=== PATIENT | female | born 1965 | race Caucasian/White ===

== ENCOUNTER 2022-12-30 05:24 | Inpatient (IN) | payer OTHER ==
[2022-12-30] MEDS ORDERED: Celecoxib 200 MG Cap PO ONE (05:45)
[2022-12-30] MEDS ORDERED: Scopolamine 1.5 MG Transdermal Patch TOP SCH (05:45)
[2022-12-30 06:07] LABS: HEMATOCRIT 41.7 % (34.3-46.0); HEMOGLOBIN 14.3 g/dL (11.2-15.5); MEAN CORPUSCULAR HEMOGLOBIN 29.4 pg (31.6-35.5); MEAN CORPUSCULAR HGB CONC 34.3 g/dL (31.6-35.5); MEAN CORPUSCULAR VOLUME 85.8 fL (81.4-99.0); RED BLOOD CELL COUNT 4.86 M/uL (3.77-5.24); WHITE BLOOD CELL COUNT,WBC 9.6 K/uL (3.2-11.0)
[2022-12-30 06:21] LABS: HEMOGLOBIN A1C 6.1 % (4.5-6.2)
[2022-12-30 06:34] LABS: ALANINE AMINOTRANSFERASE,ALT 24 U/L (12-78); ALBUMIN 3.5 g/dL (3.4-5.0); ALKALINE PHOSPHATASE 129 U/L (46-116); ANION GAP 10.7 mmol/L (5.0-14.0); ASPARTATE AMNIOTRANSFERASE,AST 10 U/L (15-37); BILIRUBIN TOTAL 0.4 mg/dL (0.2-1.0); BLOOD UREA NITROGEN,BUN 18 mg/dL (7-18); CALCIUM 8.6 mg/dL (8.5-10.1); CARBON DIOXIDE,CO2 26 mmol/L (21-32); CHLORIDE,CL 105 mmol/L (100-108); CREATININE 0.7 mg/dL (0.6-1.0); EST CRCL DRUG DOSING (CG) 78.41 mL/min; ESTIMATED GFR 102 mL/min (>60); GLUCOSE RANDOM 116 mg/dL (74-106); MAGNESIUM 1.9 mg/dL (1.8-2.4); PHOSPHORUS 3.9 mg/dL (2.5-4.9); POTASSIUM,K 3.7 mmol/L (3.6-5.2); PRO B-TYPE NATRIUR PEPT,BNPPRO 129 pg/mL (5-125); PROTEIN TOTAL,TP 6.9 g/dL (6.4-8.2); SODIUM,NA 142 mmol/L (140-148)
[2022-12-30] MEDS ORDERED: Dextrose 5%-Lactated Ringers 1,000 ML IV SCH (06:45)
[2022-12-30] MEDS ORDERED: cefOXitin 2 GM Vial ONE (06:46)
[2022-12-30] MEDS ORDERED: fentaNYL 250 MCG/5 ML SDV ONE ×2 (07:11→08:01)
[2022-12-30] MEDS ORDERED: Neostigmine Methylsulfate 1 MG/ML 5 ML Syringe ONE (07:12)
[2022-12-30] MEDS ORDERED: Rocuronium 50 MG/5 ML Vial ONE (07:12)
[2022-12-30] MEDS ORDERED: Glycopyrrolate 0.2 MG/ML 5 ML MDV ONE (07:12)
[2022-12-30] MEDS ORDERED: Propofol 200 MG/20 ML SDV ONE (07:12)
[2022-12-30] MEDS ORDERED: Dexamethasone 4 MG/ML SDV ONE (07:12)
[2022-12-30] MEDS ORDERED: Succinylcholine 200 MG/10 ML MDV ONE (07:12)
[2022-12-30] MEDS ORDERED: Ondansetron 4 MG/2 ML SDV ONE (07:12)
[2022-12-30] MEDS ORDERED: cefOXitin 2 GM in Sodium Chloride 0.9% 50 ML IV ONE (07:30)
[2022-12-30] MEDS ORDERED: Ketamine 500 MG/5 ML MDV IV SCH (08:00)
[2022-12-30] MEDS ORDERED: Ketamine 16 MG in Sodium Chloride 0.9% 19.84 ML IV SCH (08:00)
[2022-12-30] MEDS ORDERED: Labetalol 20 MG/4 ML Syringe ONE (08:17)
[2022-12-30] MEDS ORDERED: hydrOXYzine HCl 50 MG/ML SDV IM ONE (09:54)
[2022-12-30] MEDS: Ondansetron 4 MG/2 ML SDV IVPUSH PRN ×2 (10:31→14:29)
[2022-12-30] MEDS ORDERED: Acetaminophen 500 MG Tab PO PRN (11:00)
[2022-12-30] MEDS ORDERED: HYDROmorphone 0.5 MG/0.5 ML Syringe IVPUSH PRN (11:00)
[2022-12-30] MEDS ORDERED: Labetalol 20 MG/4 ML Syringe IVPUSH PRN (11:00)
[2022-12-30] MEDS ORDERED: hydrOXYzine HCl 50 MG/ML SDV IM PRN (11:00)
[2022-12-30] MEDS ORDERED: HYDROmorphone 1 MG/ML Syringe IV PRN (11:00)
[2022-12-30] MEDS ORDERED: diphenhydrAMINE 50 MG/ML SDV IVPUSH PRN (11:00)
[2022-12-30] MEDS ORDERED: Metoclopramide 10 MG/2 ML SDV IVPUSH PRN (11:00)
[2022-12-30] MEDS ORDERED: Pantoprazole 40 MG Vial IVPUSH SCH (14:00)
[2022-12-30] MEDS: cefOXitin 2 GM in Sodium Chloride 0.9% 50 ML IV SCH ×2 (14:17→19:32)
[2022-12-30] MEDS: MVI, Adult with Vitamin K 10 ML, Thiamine 200 MG, Zinc/Copper/Manganese/Selenium 1 ML i... IV SCH ×4 (15:37)
[2022-12-30] MEDS: Heparin Sodium 5,000 Units/ML Vial SUBCUT SCH (15:39)
[2022-12-30] MEDS: Acetaminophen 500 MG Tab PO SCH ×2 (15:39→23:14)
[2022-12-30] MEDS: Cyclobenzaprine 10 MG Tab PO PRN (15:41)
[2022-12-30] MEDS: traMADol 50 MG Tab PO PRN (19:36)
[2022-12-30] MEDS: Docusate Sodium Liquid 50 MG/5 ML ML 473 ML Bottle PO SCH (21:02)
[2022-12-30] MEDS: Pregabalin 75 MG Cap PO SCH (21:02)
[2022-12-30] MEDS: Metoprolol Tartrate 25 MG Tab PO SCH (21:03)
[2022-12-30] MEDS: Pramipexole 0.5 MG Tab PO SCH (21:05)
[2022-12-30] MEDS: traZODone 50 MG Tab PO SCH (21:05)
[2022-12-30] MEDS: Dextrose 5%-Lactated Ringers 1,000 ML IV SCH (23:13)
[2022-12-30] MEDS ORDERED: Benzocaine/Cetylpyridinium/Menthol Lozenge MUCMEM PRN (23:20)
[2022-12-31] MEDS ORDERED: Iopamidol 612 MG/ML 30 ML SDV PO STA (02:34)
[2022-12-31] MEDS: cefOXitin 2 GM in Sodium Chloride 0.9% 50 ML IV SCH ×3 (03:10→13:31)
[2022-12-31] MEDS: Heparin Sodium 5,000 Units/ML Vial SUBCUT SCH ×2 (03:10→15:55)
[2022-12-31] MEDS: Cyclobenzaprine 10 MG Tab PO PRN ×2 (04:11→17:49)
[2022-12-31] MEDS: traMADol 50 MG Tab PO PRN ×3 (05:23→21:47)
[2022-12-31] MEDS: Dextrose 5%-Lactated Ringers 1,000 ML IV SCH (06:25)
[2022-12-31] MEDS: Acetaminophen 500 MG Tab PO SCH ×2 (07:46→15:55)
[2022-12-31] MEDS ORDERED: Ondansetron 4 MG Tab.DIS PO PRN (07:47)
[2022-12-31] MEDS ORDERED: hydrOXYzine HCl 25 MG Tab PO PRN (07:48)
[2022-12-31] MEDS ORDERED: Dextrose 5%-Lactated Ringers 1,000 ML IV SCH (08:00)
[2022-12-31] MEDS ORDERED: VYVANSE 40 MG PO SCH (09:00)
[2022-12-31] MEDS: Metoprolol Tartrate 25 MG Tab PO SCH ×2 (09:10→21:41)
[2022-12-31] MEDS: Docusate Sodium Liquid 50 MG/5 ML ML 473 ML Bottle PO SCH ×2 (09:11→21:43)
[2022-12-31] MEDS: DULoxetine 30 MG Cap PO SCH (09:11)
[2022-12-31] MEDS: SCOPOLAMINE PATCH CHECK TOP SCH (09:11)
[2022-12-31] MEDS: Celecoxib 200 MG Cap PO SCH ×2 (09:11→21:43)
[2022-12-31] MEDS: Pregabalin 75 MG Cap PO SCH ×2 (09:15→21:43)
[2022-12-31] MEDS: Pantoprazole 40 MG Delayed-Release Granules 1 Packet PO SCH (10:49)
[2022-12-31] MEDS: MVI, Adult with Vitamin K 10 ML, Thiamine 200 MG, Zinc/Copper/Manganese/Selenium 1 ML i... IV SCH ×4 (15:56)
[2022-12-31] MEDS ORDERED: Calcium Carbonate 500 MG Tab.Chew PO PRN (20:58)
[2022-12-31] MEDS: Pramipexole 0.5 MG Tab PO SCH (21:41)
[2022-12-31] MEDS: traZODone 50 MG Tab PO SCH (21:43)
[2022-12-31] MEDS: Ondansetron 4 MG/2 ML SDV IVPUSH PRN (21:52)
[2023-01-01] MEDS: Acetaminophen 500 MG Tab PO SCH ×4 (00:43→23:27)
[2023-01-01] MEDS: Heparin Sodium 5,000 Units/ML Vial SUBCUT SCH ×2 (05:12→14:59)
[2023-01-01] MEDS: traMADol 50 MG Tab PO PRN ×3 (05:19→23:29)
[2023-01-01] MEDS ORDERED: Sodium Chloride 0.9% 10 ML Syringe IV PRN (07:42)
[2023-01-01] MEDS: Pantoprazole 40 MG Delayed-Release Granules 1 Packet PO SCH (08:12)
[2023-01-01] MEDS: DULoxetine 30 MG Cap PO SCH (08:13)
[2023-01-01] MEDS: Docusate Sodium Liquid 50 MG/5 ML ML 473 ML Bottle PO SCH ×2 (08:14→21:16)
[2023-01-01] MEDS: Celecoxib 200 MG Cap PO SCH ×2 (08:14→21:14)
[2023-01-01] MEDS: Bisacodyl 5 MG Tab PO SCH ×2 (08:14→21:15)
[2023-01-01] MEDS: Metoprolol Tartrate 25 MG Tab PO SCH ×2 (08:16→21:14)
[2023-01-01] MEDS: SCOPOLAMINE PATCH CHECK TOP SCH (08:17)
[2023-01-01] MEDS: Pregabalin 75 MG Cap PO SCH ×2 (08:21→21:14)
[2023-01-01] MEDS ORDERED: Cyanocobalamin (Vitamin B12) 1,000 MCG/ML SDV IM ONE (09:00)
[2023-01-01] MEDS: traZODone 50 MG Tab PO SCH (21:15)
[2023-01-01] MEDS: Pramipexole 0.5 MG Tab PO SCH (21:15)
[2023-01-02] MEDS: Heparin Sodium 5,000 Units/ML Vial SUBCUT SCH (04:21)
[2023-01-02] MEDS: Pantoprazole 40 MG Delayed-Release Granules 1 Packet PO SCH (07:38)
[2023-01-02] MEDS: Acetaminophen 500 MG Tab PO SCH (07:39)
[2023-01-02] MEDS ORDERED: Scopolamine 1.5 MG Transdermal Patch TOP SCH (08:00)
[2023-01-02] MEDS ORDERED: Magnesium Hydroxide 400 MG/5 ML Susp 30 ML Cup PO ONE (08:00)
[2023-01-02] MEDS: DULoxetine 30 MG Cap PO SCH (09:06)
[2023-01-02] MEDS: Pregabalin 75 MG Cap PO SCH (09:06)
[2023-01-02] MEDS: Celecoxib 200 MG Cap PO SCH (09:06)
[2023-01-02] MEDS: SCOPOLAMINE PATCH CHECK TOP SCH (09:07)
[2023-01-02] MEDS: Metoprolol Tartrate 25 MG Tab PO SCH (09:07)
[2023-01-02] MEDS: Bisacodyl 5 MG Tab PO SCH (09:07)
[2023-01-02] MEDS: Docusate Sodium Liquid 50 MG/5 ML ML 473 ML Bottle PO SCH (09:07)
[2023-01-02] MEDS: Ondansetron 4 MG/2 ML SDV IVPUSH PRN (14:35)
== END 2023-01-02 15:37 | disposition home or self-care (01) | DRG 621 ==
LOC: JP.SDSSCHI 05:24 → JP.MS 10:14
PROVIDERS: ADMIT Surgery; ATTEND Surgery
PROC: 0D164ZA Bypass Stomach to Jejunum, Percutaneous Endoscopic Approach (ICD-10-PCS; principal; 2022-12-30)
PROC: 0WBC4ZZ Excision of Mediastinum, Percutaneous Endoscopic Approach (ICD-10-PCS; 2022-12-30)
PROC: 0DT84ZZ Resection of Small Intestine, Percutaneous Endoscopic Approach (ICD-10-PCS; 2022-12-30)
PROC: 0BQT4ZZ Repair Diaphragm, Percutaneous Endoscopic Approach (ICD-10-PCS; 2022-12-30)
PROC: 0FB24ZX Excision of Left Lobe Liver, Percutaneous Endoscopic Approach, Diagnostic (ICD-10-PCS; 2022-12-30)
DX: E66.01 Morbid (severe) obesity due to excess calories (principal); K44.9 Diaphragmatic hernia without obstruction or gangrene; R16.0 Hepatomegaly, not elsewhere classified; D15.2 Benign neoplasm of mediastinum; I10 Essential (primary) hypertension; E78.5 Hyperlipidemia, unspecified; K21.9 Gastro-esophageal reflux disease without esophagitis; M19.90 Unspecified osteoarthritis, unspecified site; F32.A Depression, unspecified; G25.81 Restless legs syndrome; F90.9 Attention-deficit hyperactivity disorder, unspecified type; F41.1 Generalized anxiety disorder; I25.10 Atherosclerotic heart disease of native coronary artery without angina pectoris; G47.00 Insomnia, unspecified; Z96.651 Presence of right artificial knee joint; Z79.899 Other long term (current) drug therapy; Z68.43 Body mass index [BMI] 50.0-59.9, adult; Z88.2 Allergy status to sulfonamides; Z88.0 Allergy status to penicillin
CPT/HCPCS: 36415; 74240; 74240-26; 80053; 83036; 83735; 83880; 84100; 85027; 86850; 86900; 86901; 88304; 88307; 88313; A9270-GY; C9113; J0131; J0171; J0330; J0694; J1100; J1170; J1644; J2405; J2704; J2710; J2795; J3010; J3410; J3411; J3420; J3490; J7121; Q0162; Q9967